=== PATIENT | female | born 1950 | race American Indian/Alaskan Native ===

== ENCOUNTER 2016-12-07 13:48 | Emergency (ER) | payer MEDICAID ==
[2016-12-07 14:30] VITALS: BP 139/60
--- NOTE | 2016-12-07 17:04 | Emergency Department Report ---
ED General Adult HPI - General Chief complaint: Extremity Injury, Lower Stated complaint: FALL/RT KNEE PAIN Time Seen by Provider: 12/07/16 16:19 Source: patient Mode of arrival: Ambulatory Limitations: No Limitations - History of Present Illness Initial comments: 66 year old female presents with right knee pain. states that she has arthritis and felt her knee give out when walking yesterday. states it is an aching pain medially. denies other injury when she fell. denies taking otc medication for pain. - Related Data Home Medications Medication Instructions Recorded Confirmed Last Taken Amlodipine Besylate/Benazepril 10 mg PO DAILY 07/09/14 07/09/14 07/09/14 09:00 [amLODIPine-Benazepril 10/20 mg] Aspirin [Aspirin BABY CHEW TAB] 81 mg PO DAILY 07/09/14 07/09/14 07/09/14 09:00 Atorvastatin [Lipitor] 40 mg PO QHS 07/09/14 07/09/14 07/08/14 22:00 Carvedilol [Coreg] 12.5 mg PO BID 07/09/14 07/09/14 07/09/14 09:00 Gabapentin [Neurontin] 600 mg PO TID 07/09/14 07/09/14 07/09/14 13:00 Insulin Aspart [NovoLOG 100 15 units SQ TID 07/09/14 07/09/14 07/09/14 13:00 UNITS/ML VIAL] Insulin Glargine [Lantus VIAL] 40 units SQ QHS 07/09/14 07/09/14 07/08/14 Isosorbide Mononitrate [Isosorbide 30 mg PO DAILY 07/09/14 07/09/14 07/09/14 09: 00 Mononitrate ER] Loratadine [Claritin] 10 mg PO DAILY 07/09/14 07/09/14 07/09/14 09:00 Losartan [Cozaar] 25 mg PO QDAY 07/09/14 07/09/14 07/09/14 09:00 Tramadol HCl [traMADol] 50 mg PO Q8H PRN 07/09/14 07/09/14 07/08/14 22:00 Previous Rx's Medication Instructions Recorded Last Taken Type Acetaminophen/Codeine [Tylenol #3] 1 tab PO Q8H PRN #12 tablet 04/13/15 Unknown Rx Cyclobenzaprine [Flexeril 10mg] 10 mg PO TID PRN #15 tablet 04/13/15 Unknown Rx traMADol [Ultram 50 MG tab] 50 mg PO Q6HR PRN #14 tablet 12/07/16 Unknown Rx Allergies Allergy/AdvReac Type Severity Reaction Status Date / Time No Known Allergies Allergy Verified 05/17/16 08:56 ED Review of Systems ROS: Stated complaint: FALL/RT KNEE PAIN Other details as noted in HPI Constitutional: denies: chills, fever Eyes: denies: eye pain, eye discharge, vision change ENT: denies: ear pain, throat pain Respiratory: denies: cough, shortness of breath, wheezing Cardiovascular: denies: chest pain, palpitations Endocrine: no symptoms reported Gastrointestinal: denies: abdominal pain, nausea, diarrhea Genitourinary: denies: urgency, dysuria, discharge Musculoskeletal: arthralgia. denies: back pain, joint swelling Skin: denies: rash, lesions Neurological: denies: headache, weakness, paresthesias Psychiatric: denies: anxiety, depression Hematological/Lymphatic: denies: easy bleeding, easy bruising ED Past Medical Hx - Past Medical History Hx Hypertension: Yes Hx Diabetes: Yes - Surgical History Additional Surgical History: "blockage cleared in my artery at [place]" - Social History Smoking Status: Never Smoker Substance Use Type: None - Medications Home Medications: Home Medications Medication Instructions Recorded Confirmed Last Taken Type Amlodipine Besylate/Benazepril 10 mg PO DAILY 07/09/14 07/09/14 07/09/14 09:00 History [amLODIPine-Benazepril 10/20 mg] Aspirin [Aspirin BABY CHEW TAB] 81 mg PO DAILY 07/09/14 07/09/14 07/09/14 09:00 History Atorvastatin [Lipitor] 40 mg PO QHS 07/09/14 07/09/14 07/08/14 22:00 History Carvedilol [Coreg] 12.5 mg PO BID 07/09/14 07/09/14 07/09/14 09:00 History Gabapentin [Neurontin] 600 mg PO TID 07/09/14 07/09/14 07/09/14 13:00 History Insulin Aspart [NovoLOG 100 15 units SQ TID 07/09/14 07/09/14 07/09/14 13:00 History UNITS/ML VIAL] Insulin Glargine [Lantus VIAL] 40 units SQ QHS 07/09/14 07/09/14 07/08/14 History Isosorbide Mononitrate [Isosorbide 30 mg PO DAILY 07/09/14 07/09/14 07/09/14 09: 00 History Mononitrate ER] Loratadine [Claritin] 10 mg PO DAILY 07/09/14 07/09/14 07/09/14 09:00 History Losartan [Cozaar] 25 mg PO QDAY 07/09/14 07/09/14 07/09/14 09:00 History Tramadol HCl [traMADol] 50 mg PO Q8H PRN 07/09/14 07/09/14 07/08/14 22:00 History Acetaminophen/Codeine [Tylenol #3] 1 tab PO Q8H PRN #12 tablet 04/13/15 Unknown Rx Cyclobenzaprine [Flexeril 10mg] 10 mg PO TID PRN #15 tablet 04/13/15 Unknown Rx traMADol [Ultram 50 MG tab] 50 mg PO Q6HR PRN #14 tablet 12/07/16 Unknown Rx ED Physical Exam - General Limitations: No Limitations General appearance: alert, in no apparent distress - Head Head exam: Present: atraumatic, normocephalic - Eye Eye exam: Present: normal appearance - ENT ENT exam: Present: mucous membranes moist - Neck Neck exam: Present: normal inspection - Respiratory Respiratory exam: Present: normal lung sounds bilaterally. Absent: respiratory distress - Cardiovascular Cardiovascular Exam: Present: regular rate, normal rhythm. Absent: systolic murmur, diastolic murmur, rubs, gallop - GI/Abdominal GI/Abdominal exam: Present: soft, normal bowel sounds - Extremities Exam Extremities exam: Present: normal inspection - Expanded Lower Extremity Exam Right Upper Leg exam: Present: normal inspection, full ROM Knee exam: Present: normal inspection, tenderness (medially), pain/laxity with valgus. Absent: swelling, abrasion, laceration, ecchymosis, deformity, dislocation, erythema, effusion, pain w/ pronation/supination, posterior draw sign, full knee extension Lower Leg exam: Present: normal inspection, full ROM - Back Exam Back exam: Present: normal inspection - Neurological Exam Neurological exam: Present: alert, oriented X3 - Psychiatric Psychiatric exam: Present: normal affect, normal mood - Skin Skin exam: Present: warm, dry, intact, normal color. Absent: rash ED Course Vital Signs 12/07/16 14:28 Temperature 98.6 F Pulse Rate 58 L Respiratory 20 Rate Blood Pressure 139/60 O2 Sat by Pulse 100 Oximetry ED Medical Decision Making - Medical Decision Making arthritis seen on right knee XR. NAF. Critical care attestation.: If time is entered above; I have spent that time in minutes in the direct care of this critically ill patient, excluding procedure time. ED Disposition Clinical Impression: Arthritis of right knee, Right knee pain, Fall Disposition: DISCHARGED TO HOME OR SELFCARE Is pt being admited?: No Does the pt Need Aspirin: No Condition: Good Instructions: Arthralgia (ED) Additional Instructions: take medication as prescribed. follow up with orthopedist. Prescriptions: traMADol [Ultram 50 MG tab] 50 mg PO Q6HR PRN #14 tablet PRN Reason: Pain Referrals: PRIMARY CARE, [Primary Care Provider] - 3-5 Days Time of Disposition: 17:05
--- NOTE | 2016-12-08 08:44 | XRay Report ---
RIGHT KNEE, 3 VIEWS: HISTORY: Right knee injury. FINDINGS: [id number] osteoarthritic changes are identified in all 3 compartments. There is no evidence for fracture, bone lesion or large osteochondral defect. [id number] joint effusion is noted on the lateral image. IMPRESSION: Moderate osteoarthritic changes. Joint effusion. No acute bony injury is detected.
== END 2016-12-07 17:20 | disposition home or self-care (01) ==
LOC: ED 13:48
DX: M13.861 Other specified arthritis, right knee (principal); I10 Essential (primary) hypertension; E11.9 Type 2 diabetes mellitus without complications; Z79.82 Long term (current) use of aspirin; Z79.4 Long term (current) use of insulin; W18.30XA Fall on same level, unspecified, initial encounter; Y93.01 Activity, walking, marching and hiking; Y99.9 Unspecified external cause status; Y92.89 Other specified places as the place of occurrence of the external cause

== ENCOUNTER 2017-07-04 04:27 | Emergency (ER) | payer MEDICARE, MEDICAID ==
[2017-07-04] MEDS ORDERED: TORADOL IM ONE (09:05)
--- NOTE | 2017-07-04 09:10 | Emergency Department Report ---
ED Back Pain/Injury HPI - General Chief Complaint: Extremity Injury, Lower Stated Complaint: LEFT LEG PAIN Time Seen by Provider: 07/04/17 08:32 Source: patient Limitations: No Limitations - History of Present Illness Initial Comments: 67-year-old female with recent back surgery for spinal stenosis in April 2008. Surgery was done at [facility] by Dr. Mena. She complains of left sided left leg pain. Pain radiates from the low back all the way down the left leg. She is having some significant pain with it. This was occipital where her pain was prior to surgery. Her initial pain was on the right. Denies weakness. States there may be some mild swelling. No fevers chills nausea vomiting. She has no shortness of breath or chest pain. MD Complaint: back pain -: Gradual, days(s) Place: home Radiation: left leg Severity: moderate Quality: burning Improves With: none Worsens With: none Associated Symptoms: difficulty walking. denies: confusion, weakness, chest pain, numbness - Related Data Home Medications Medication Instructions Recorded Confirmed Last Taken Amlodipine Besylate/Benazepril 10 mg PO DAILY 07/09/14 07/09/14 07/09/14 09:00 [amLODIPine-Benazepril 10/20 mg] Aspirin [Aspirin BABY CHEW TAB] 81 mg PO DAILY 07/09/14 07/09/14 07/09/14 09:00 Atorvastatin [Lipitor] 40 mg PO QHS 07/09/14 07/09/14 07/08/14 22:00 Carvedilol [Coreg] 12.5 mg PO BID 07/09/14 07/09/14 07/09/14 09:00 Gabapentin [Neurontin] 600 mg PO TID 07/09/14 07/09/14 07/09/14 13:00 Insulin Aspart [NovoLOG 100 15 units SQ TID 07/09/14 07/09/14 07/09/14 13:00 UNITS/ML VIAL] Insulin Glargine [Lantus VIAL] 40 units SQ QHS 07/09/14 07/09/14 07/08/14 Isosorbide Mononitrate [Isosorbide 30 mg PO DAILY 07/09/14 07/09/14 07/09/14 09: 00 Mononitrate ER] Loratadine [Claritin] 10 mg PO DAILY 07/09/14 07/09/14 07/09/14 09:00 Losartan [Cozaar] 25 mg PO QDAY 07/09/14 07/09/14 07/09/14 09:00 Tramadol HCl [traMADol] 50 mg PO Q8H PRN 07/09/14 07/09/14 07/08/14 22:00 Previous Rx's Medication Instructions Recorded Last Taken Type Acetaminophen/Codeine [Tylenol #3] 1 tab PO Q8H PRN #12 tablet 04/13/15 Unknown Rx Cyclobenzaprine [Flexeril 10mg] 10 mg PO TID PRN #15 tablet 04/13/15 Unknown Rx traMADol [Ultram 50 MG tab] 50 mg PO Q6HR PRN #14 tablet 12/07/16 Unknown Rx Ibuprofen [Motrin] 600 mg PO Q8H PRN #30 tablet 07/04/17 Unknown Rx Allergies Allergy/AdvReac Type Severity Reaction Status Date / Time No Known Allergies Allergy Verified 05/17/16 08:56 ED Review of Systems ROS: Stated complaint: LEFT LEG PAIN Other details as noted in HPI Comment: All other systems reviewed and negative Constitutional: denies: chills, fever, malaise Respiratory: denies: cough, shortness of breath, wheezing Cardiovascular: denies: chest pain, palpitations Endocrine: no symptoms reported Gastrointestinal: denies: abdominal pain, nausea, diarrhea Genitourinary: denies: urgency, dysuria, discharge Musculoskeletal: denies: back pain, joint swelling, arthralgia Neurological: denies: headache, weakness, paresthesias Psychiatric: denies: anxiety, depression Hematological/Lymphatic: denies: easy bleeding, easy bruising ED Past Medical Hx - Past Medical History Previous Medical History?: Yes Hx Hypertension: Yes Hx Diabetes: Yes - Surgical History Past Surgical History?: Yes Additional Surgical History: "blockage cleared in my artery at [facility]" back surgery - Family History Family history: no significant - Social History Smoking Status: Never Smoker Substance Use Type: None - Medications Home Medications: Home Medications Medication Instructions Recorded Confirmed Last Taken Type Amlodipine Besylate/Benazepril 10 mg PO DAILY 07/09/14 07/09/14 07/09/14 09:00 History [amLODIPine-Benazepril 10/20 mg] Aspirin [Aspirin BABY CHEW TAB] 81 mg PO DAILY 07/09/14 07/09/14 07/09/14 09:00 History Atorvastatin [Lipitor] 40 mg PO QHS 07/09/14 07/09/14 07/08/14 22:00 History Carvedilol [Coreg] 12.5 mg PO BID 07/09/14 07/09/14 07/09/14 09:00 History Gabapentin [Neurontin] 600 mg PO TID 07/09/14 07/09/14 07/09/14 13:00 History Insulin Aspart [NovoLOG 100 15 units SQ TID 07/09/14 07/09/14 07/09/14 13:00 History UNITS/ML VIAL] Insulin Glargine [Lantus VIAL] 40 units SQ QHS 07/09/14 07/09/14 07/08/14 History Isosorbide Mononitrate [Isosorbide 30 mg PO DAILY 07/09/14 07/09/14 07/09/14 09: 00 History Mononitrate ER] Loratadine [Claritin] 10 mg PO DAILY 07/09/14 07/09/14 07/09/14 09:00 History Losartan [Cozaar] 25 mg PO QDAY 07/09/14 07/09/14 07/09/14 09:00 History Tramadol HCl [traMADol] 50 mg PO Q8H PRN 07/09/14 07/09/14 07/08/14 22:00 History Acetaminophen/Codeine [Tylenol #3] 1 tab PO Q8H PRN #12 tablet 04/13/15 Unknown Rx Cyclobenzaprine [Flexeril 10mg] 10 mg PO TID PRN #15 tablet 04/13/15 Unknown Rx traMADol [Ultram 50 MG tab] 50 mg PO Q6HR PRN #14 tablet 12/07/16 Unknown Rx Ibuprofen [Motrin] 600 mg PO Q8H PRN #30 tablet 07/04/17 Unknown Rx ED Physical Exam - General Limitations: No Limitations General appearance: alert, in no apparent distress - Head Head exam: Present: atraumatic, normocephalic - Eye Eye exam: Present: normal appearance - ENT ENT exam: Present: mucous membranes moist - Neck Neck exam: Present: normal inspection. Absent: lymphadenopathy, thyromegaly - Respiratory Respiratory exam: Present: normal lung sounds bilaterally. Absent: respiratory distress, wheezes, rales - Cardiovascular Cardiovascular Exam: Present: regular rate, normal rhythm, normal heart sounds. Absent: systolic murmur, diastolic murmur, rubs, gallop - GI/Abdominal GI/Abdominal exam: Present: soft, normal bowel sounds. Absent: distended, tenderness, guarding - Extremities Exam Extremities exam: Present: normal inspection, pedal edema, other (other straight leg about 30 on the left). Absent: joint swelling, calf tenderness - Back Exam Back exam: Present: other (1+2 surgical incisions that appear well-healed with no evidence of erythema or infection). Absent: tenderness, CVA tenderness (R), muscle spasm, paraspinal tenderness, vertebral tenderness - Neurological Exam Neurological exam: Present: alert, oriented X3 - Psychiatric Psychiatric exam: Present: normal affect, normal mood - Skin Skin exam: Present: warm, dry, intact, normal color. Absent: rash ED Course Vital Signs 07/04/17 07/04/17 07/04/17 04:31 04:36 08:11 Temperature 98.0 F 98.0 F Pulse Rate 62 61 52 L Respiratory 18 13 Rate Blood Pressure 166/69 166/69 O2 Sat by Pulse 99 100 Oximetry 07/04/17 07/04/17 07/04/17 08:15 08:26 08:31 Temperature Pulse Rate 63 67 Respiratory 19 15 18 Rate Blood Pressure 143/60 113/49 O2 Sat by Pulse 99 100 99 Oximetry 07/04/17 07/04/17 07/04/17 08:45 09:01 09:53 Temperature Pulse Rate 62 64 Respiratory 17 25 H Rate Blood Pressure 113/49 155/56 155/56 O2 Sat by Pulse 99 100 99 Oximetry 07/04/17 07/04/17 07/04/17 10:01 10:17 10:22 Temperature Pulse Rate 62 Respiratory 20 18 Rate Blood Pressure 118/42 118/42 O2 Sat by Pulse 99 100 Oximetry 07/04/17 07/04/17 07/04/17 10:31 10:45 11:01 Temperature Pulse Rate 56 L 59 L 58 L Respiratory 16 12 17 Rate Blood Pressure 102/33 118/42 116/48 O2 Sat by Pulse 99 100 99 Oximetry 07/04/17 07/04/17 07/04/17 11:15 11:31 11:45 Temperature Pulse Rate 59 L 58 L 58 L Respiratory 17 16 16 Rate Blood Pressure 116/48 100/32 100/32 O2 Sat by Pulse 98 99 98 Oximetry 07/04/17 12:01 Temperature Pulse Rate 64 Respiratory 20 Rate Blood Pressure 88/34 O2 Sat by Pulse 99 Oximetry ED Medical Decision Making - Lab Data Result diagrams: 07/04/17 09:52 07/04/17 09:52 Laboratory Results - last 24 hr 07/04/17 07/04/17 09:52 09:52 WBC 7.7 RBC 4.51 Hgb 11.6 Hct 36.5 MCV 81 MCH 26 L MCHC 32 RDW 14.2 Plt Count 298 Lymph % (Auto) 38.8 H [place] % (Auto) 7.7 H Eos % (Auto) 3.1 Baso % (Auto) 1.0 Lymph # 3.0 [place] # 0.6 Eos # 0.2 Baso # 0.1 Seg Neutrophils % 49.4 Seg Neutrophils # 3.8 Sodium 137 Potassium 4.7 Chloride 100.3 Carbon Dioxide 22 Anion Gap 19 BUN 18 H Creatinine 0.9 Estimated GFR > 60 BUN/Creatinine Ratio 20.00 Glucose 237 H Calcium 9.5 - Medical Decision Making 67-year-old female here with back pain. Patient states that she has developed left leg pain since her surgery. She has no numbness tingling. She does have some mild swelling in the left leg. Plan to rule out DVT. Plain x-ray to confirm normal placement of spinal hardware. We'll likely refer her back to [facility] for follow-up of her care. Patient neurologically intact. No DVT on ultrasound. Plan to discharge the patient home with follow-up with spine surgery.. Critical care attestation.: If time is entered above; I have spent that time in minutes in the direct care of this critically ill patient, excluding procedure time. ED Disposition Clinical Impression: Back pain, Lumbar radiculopathy Disposition: - TO HOME OR SELFCARE Is pt being admited?: No Condition: Stable Instructions: Lumbar Radiculopathy (ED) Additional Instructions: Please contact Dr. Mena and follow-up with him tomorrow. Prescriptions: Ibuprofen [Motrin] 600 mg PO Q8H PRN #30 tablet PRN Reason: Pain Referrals: PRIMARY CARE, [Primary Care Provider] - 3-5 Days
--- NOTE | 2017-07-04 09:40 | XRay Report ---
AP AND LATERAL LUMBOSACRAL SPINE: History: Back pain, recent surgery. No comparison at this facility. Posterior fusion with disc spacer placement has been performed at L4-5. The hardware appears well applied. There is normal height and alignment of the lumbar vertebral bodies. No compression deformity, subluxation or bone lesion. Mild to moderate degenerative changes are identified at all levels. The upper sacrum and SI joints are unremarkable. IMPRESSION: Stable appearance of the posterior fusion changes at L4-5. Lumbar spondylosis. No acute process is noted.
[2017-07-04 10:21] LABS: Eosinophils % (Auto) 3.1 % (0.0-4.3); Hematocrit 36.5 % (30.3-42.9); Hemoglobin 11.6 gm/dl (10.1-14.3); Mean Corpuscular HGB Conc 32 % (30-34); Mean Corpuscular Volume 81 fl (79-97); Platelet Count 298 K/mm3 (140-440); Red Blood Count 4.51 M/mm3 (3.65-5.03); Red Cell Distribution Width 14.2 % (13.2-15.2); White Blood Count 7.7 K/mm3 (4.5-11.0)
[2017-07-04 10:37] LABS: Anion Gap 19 mmol/L; Blood Urea Nitrogen 18 mg/dL (7-17); Calcium 9.5 mg/dL (8.4-10.2); Carbon Dioxide 22 mmol/L (22-30); Chloride 100.3 mmol/L (98-107); Glucose 237 mg/dL (65-100); Potassium 4.7 mmol/L (3.6-5.0); Sodium 137 mmol/L (137-145)
[2017-07-04 10:58] LABS: Mean Corpuscular Hemoglobin 26 pg (28-32)
[2017-07-04 12:40] VITALS: BP 105/46
--- NOTE | 2017-07-06 07:49 | Vascular Lab Report ---
Left Lower Extremity Venous Duplex Study: Reason for Exam: Pain of the left lower extremity. Comments on the Right: A limited duplex study was done of the proximal veins of the right lower extremity. All veins visualized are freely compressible without evidence of internal echogenicity. Flow is spontaneous and phasic throughout. No evidence of acute or chronic thrombus is seen in any of the vessels visualized. Comments on the Left: All veins visualized are freely compressible without evidence of internal echogenicity. Flow is spontaneous and phasic throughout. No evidence of acute or chronic thrombus is seen in any of the vessels visualized. Impression: No evidence of acute or chronic deep venous thrombosis in the left lower extremity.
== END 2017-07-04 12:42 | disposition home or self-care (01) ==
LOC: ED 04:27
DX: M54.16 Radiculopathy, lumbar region (principal); I10 Essential (primary) hypertension; E11.9 Type 2 diabetes mellitus without complications
CPT/HCPCS: 36415; 72100; 80048; 85025; 93971; 96372; 99284; J1885

== ENCOUNTER 2018-01-11 16:00 | Emergency (ER) | payer MEDICARE, MEDICAID ==
[2018-01-11 16:32] VITALS: BP 135/54
--- NOTE | 2018-01-11 19:55 | Emergency Department Report ---
ED Shortness of Breath HPI - General Chief Complaint: Adult Asthma Stated Complaint: ASTHMA/DRY COUGH Time Seen by Provider: 01/11/18 19:47 Source: patient Mode of arrival: Ambulatory Limitations: No Limitations - History of Present Illness Initial Comments: is a 68-year-old female who is complaining of cough congestion for the last week. Patient does have a history of asthma has been wheezing at home. Patient's states that she has congestion. Patient denies any fevers chills nausea vomiting abdominal pain. Patient does state that the last 2 nights she's had some tightness in the chest. Pain Scale: 3 Consistency: constant Improves With: nothing Worsens With: coughing, inspiration Known History Of: asthma, diabetes Context: allergen exposure - Related Data Home Medications Medication Instructions Recorded Confirmed Last Taken Amlodipine Besylate/Benazepril 10 mg PO DAILY 07/09/14 07/04/17 07/09/14 09:00 [amLODIPine-Benazepril 10/20 mg] Aspirin [Aspirin BABY CHEW TAB] 81 mg PO DAILY 07/09/14 07/04/17 07/09/14 09:00 Atorvastatin [Lipitor] 40 mg PO QHS 07/09/14 07/04/17 07/08/14 22:00 Insulin Aspart [NovoLOG 100 15 units SQ TID 07/09/14 07/04/17 07/09/14 13:00 UNITS/ML VIAL] Insulin Glargine [Lantus VIAL] 45 units SQ QHS 07/09/14 07/04/17 07/08/14 Losartan [Cozaar] 25 mg PO QDAY 07/09/14 07/04/17 07/09/14 09:00 Tramadol HCl [traMADol] 50 mg PO Q8H PRN 07/09/14 07/09/14 07/08/14 22:00 Carvedilol [Coreg] 25 mg PO BID 07/04/17 07/04/17 Unknown Ergocalciferol [Vitamin D2] 1 cap PO QWEEK 07/04/17 07/04/17 Unknown Spironolactone [Aldactone] 50 mg PO QDAY 07/04/17 07/04/17 Unknown Previous Rx's Medication Instructions Recorded Last Taken Type Ibuprofen [Motrin] 600 mg PO Q8H PRN #30 tablet 07/04/17 Unknown Rx ALBUTEROL Inhaler [ProAir HFA 2 puff IH QID PRN #1 inhalation 01/11/18 Unknown Rx Inhaler] Benzonatate [Tessalon Perle] 100 mg PO BID #15 capsule 01/11/18 Unknown Rx Loratadine [Claritin] 10 mg PO DAILY #20 tablet 01/11/18 Unknown Rx Allergies Allergy/AdvReac Type Severity Reaction Status Date / Time No Known Allergies Allergy Verified 05/17/16 08:56 ED Review of Systems ROS: Stated complaint: ASTHMA/DRY COUGH Other details as noted in HPI Comment: All other systems reviewed and negative ED Past Medical Hx - Past Medical History Previous Medical History?: Yes Hx Hypertension: Yes Hx Diabetes: Yes Hx Asthma: Yes - Surgical History Past Surgical History?: Yes Additional Surgical History: "blockage cleared in my artery at [place]" back surgery - Social History Smoking Status: Never Smoker Substance Use Type: None - Medications Home Medications: Home Medications Medication Instructions Recorded Confirmed Last Taken Type Amlodipine Besylate/Benazepril 10 mg PO DAILY 07/09/14 07/04/17 07/09/14 09:00 History [amLODIPine-Benazepril 10/20 mg] Aspirin [Aspirin BABY CHEW TAB] 81 mg PO DAILY 07/09/14 07/04/17 07/09/14 09:00 History Atorvastatin [Lipitor] 40 mg PO QHS 07/09/14 07/04/17 07/08/14 22:00 History Insulin Aspart [NovoLOG 100 15 units SQ TID 07/09/14 07/04/17 07/09/14 13:00 History UNITS/ML VIAL] Insulin Glargine [Lantus VIAL] 45 units SQ QHS 07/09/14 07/04/17 07/08/14 History Losartan [Cozaar] 25 mg PO QDAY 07/09/14 07/04/17 07/09/14 09:00 History Tramadol HCl [traMADol] 50 mg PO Q8H PRN 07/09/14 07/09/14 07/08/14 22:00 History Carvedilol [Coreg] 25 mg PO BID 07/04/17 07/04/17 Unknown History Ergocalciferol [Vitamin D2] 1 cap PO QWEEK 07/04/17 07/04/17 Unknown History Ibuprofen [Motrin] 600 mg PO Q8H PRN #30 tablet 07/04/17 Unknown Rx Spironolactone [Aldactone] 50 mg PO QDAY 07/04/17 07/04/17 Unknown History ALBUTEROL Inhaler [ProAir HFA 2 puff IH QID PRN #1 inhalation 01/11/18 Unknown Rx Inhaler] Benzonatate [Tessalon Perle] 100 mg PO BID #15 capsule 01/11/18 Unknown Rx Loratadine [Claritin] 10 mg PO DAILY #20 tablet 01/11/18 Unknown Rx ED Physical Exam - General Limitations: No Limitations General appearance: alert, in no apparent distress - Head Head exam: Present: atraumatic, normocephalic - Eye Eye exam: Present: normal appearance - ENT ENT exam: Present: mucous membranes moist - Neck Neck exam: Present: normal inspection - Respiratory Respiratory exam: Present: normal lung sounds bilaterally. Absent: respiratory distress, wheezes (patient does not have a wheeze however she does have a prolonged respiratory phase with some decreased breath sounds bilaterally), rales, rhonchi, stridor - Cardiovascular Cardiovascular Exam: Present: regular rate, normal rhythm. Absent: systolic murmur, diastolic murmur, rubs, gallop - GI/Abdominal GI/Abdominal exam: Present: soft, normal bowel sounds - Extremities Exam Extremities exam: Present: normal inspection - Back Exam Back exam: Present: normal inspection - Neurological Exam Neurological exam: Present: alert, oriented X3 - Psychiatric Psychiatric exam: Present: normal affect, normal mood - Skin Skin exam: Present: warm, dry, intact, normal color. Absent: rash ED Course Vital Signs 01/11/18 16:23 Temperature 98.8 F Pulse Rate 71 Respiratory 18 Rate Blood Pressure 135/54 O2 Sat by Pulse 98 Oximetry ED Medical Decision Making - Medical Decision Making Patient has some pre-asthma type I sounds. Patient will be started on albuterol inhaler and be given meds for her cough and congestion. Critical care attestation.: If time is entered above; I have spent that time in minutes in the direct care of this critically ill patient, excluding procedure time. ED Disposition Clinical Impression: Asthma exacerbation Qualifiers: Asthma severity: moderate Asthma persistence: unspecified Qualified Code(s): J45.901 - Unspecified asthma with (acute) exacerbation Allergic rhinitis Qualifiers: Allergic rhinitis trigger: pollen Allergic rhinitis seasonality: seasonal Qualified Code(s): J30.1 - Allergic rhinitis due to pollen Disposition: DC-01 TO HOME OR SELFCARE Is pt being admited?: No Does the pt Need Aspirin: No Condition: Stable Instructions: Asthma (ED) Prescriptions: ALBUTEROL Inhaler [ProAir HFA Inhaler] 2 puff IH QID PRN #1 inhalation PRN Reason: Shortness Of Breath Benzonatate [Tessalon Perle] 100 mg PO BID #15 capsule Loratadine [Claritin] 10 mg PO DAILY #20 tablet Referrals: SHA MARADIAGA MD [Referring] - 3-5 Days
== END 2018-01-11 20:13 | disposition home or self-care (01) ==
LOC: ED 16:00
DX: J45.901 Unspecified asthma with (acute) exacerbation (principal); J30.9 Allergic rhinitis, unspecified; I10 Essential (primary) hypertension; E11.9 Type 2 diabetes mellitus without complications; Z79.4 Long term (current) use of insulin
CPT/HCPCS: 99282

== ENCOUNTER 2019-08-22 22:29 | Emergency (ER) | payer MEDICARE, MEDICAID ==
[2019-08-22 22:58] LABS: Basophils # (Auto) 0.1 K/mm3 (0.0-0.1); Eosinophils # (Auto) 0.1 K/mm3 (0.0-0.4); Eosinophils % (Auto) 0.7 % (0.0-4.3); Hemoglobin 11.8 gm/dl (10.1-14.3); Lymphocytes # (Auto) 1.8 K/mm3 (1.2-5.4); Lymphocytes % (Auto) 17.3 % (13.4-35.0); Mean Corpuscular HGB Conc 34 % (30-34); Mean Corpuscular Volume 83 fl (79-97); Monocytes # (Auto) 0.7 K/mm3 (0.0-0.8); Monocytes % (Auto) 6.9 % (0.0-7.3); Platelet Count 296 K/mm3 (140-440); Red Blood Count 4.23 M/mm3 (3.65-5.03); Red Cell Distribution Width 12.9 % (13.2-15.2)
[2019-08-22 23:21] LABS: Alanine Aminotransferase 23 units/L (7-56); Albumin 3.7 g/dL (3.9-5); BUN/Creatinine Ratio 10; Blood Urea Nitrogen 10 mg/dL (7-17); Hemolysis Index 8
[2019-08-23 00:05] LABS: Bacteria,Urine 4+ /HPF (Negative); Bilirubin,Urine NEG (Negative); Blood,Urine MOD (Negative); Color,Urine Yellow (Yellow); Mucus,Urine FEW /HPF; Protein,Urine <15 mg/dL mg/dL (Negative); Urobilinogen,Urine < 2.0 mg/dL (<2.0)
[2019-08-23] MEDS ORDERED: SODIUM CHLORIDE 0.9% 1000 ML 1,000 ML IV ONE (00:05)
[2019-08-23] MEDS ORDERED: ONDANSETRON 4 MG/2 ML INJ IV ONE (00:05)
[2019-08-23] MEDS ORDERED: MORPHINE 4 MG/1 ML INJ IV ONE (00:05)
[2019-08-23] MEDS ORDERED: FAMOTIDINE 20 MG/2 ML INJ IV ONE (00:05)
--- NOTE | 2019-08-23 01:31 | Ultrasound Report ---
ULTRASOUND ABDOMEN, LIMITED (RIGHT UPPER QUADRANT) INDICATION / CLINICAL INFORMATION: RUQ Pain: R/O Gallstones vs Cholecystitis. COMPARISON: None available. FINDINGS: PANCREAS: Pancreas is not well-visualized. Pancreas appeared grossly normal given this limitation. LIVER: The liver is mildly enlarged but no focal hepatic abnormality noted. GALLBLADDER: No evidence of gallstones or gallbladder wall thickening. BILE DUCTS: No significant abnormality. Common bile duct measures 1-2 mm. FREE FLUID: None. ADDITIONAL FINDINGS: The right kidney contains a simple cyst measuring 4.0 cm. No evidence of abdomin al aortic aneurysm.. IMPRESSION: 1. No acute finding within the right upper quadrant. More specifically, no sonographic evidence for a cute cholecystitis or cholelithiasis. 2. Minimal hepatomegaly. 3. Right renal simple cyst, 4 cm Signer Name: Sue Carmen MD Signed: 08/23/2019 1:26 AM Workstation Name: [id number]
[2019-08-23] MEDS ORDERED: cefTRIAXone/NS 1 GM/50 ML 1 GM/50 ML BAG IV ONE (01:50)
--- NOTE | 2019-08-23 02:14 | Emergency Department Report ---
ED N/V/D HPI - General Chief complaint: Nausea/Vomiting/Diarrhea Stated complaint: CANT KEEP FOOD DOWN Source: patient Mode of arrival: Ambulatory Limitations: No Limitations - History of Present Illness Initial comments: Patient is a 69-year-old -[place] female with a history of hypertension, otv-zocydah-caevxlscf diabetes and hyperlipidemia who presents to the ED with cold and of acute onset persistent nausea, vomiting, diarrhea and epigastric pain for the last 5 days. Patient states that she has no been able to keep anything down because of persistent nausea and vomiting. Patient states that in the last 6 hours, epigastric pain and nausea and vomiting have worsened. Patient denies fever, chills, dizziness, headache, chest pain, shortness of breath, sore throat, dysuria, urinary frequency and urgency, dizziness, syncope, palpitations, cough or back pain. MD complaint: nausea, vomiting, diarrhea, abdominal pain (Epigastric pain) -: Sudden, days(s) (5) Description of Vomiting: food contents, watery, bilious Description of Diarrhea: water Associated Abdominal Pain: Yes (Epigastric pain) Location: epigastric Radiation: none Severity: moderate Pain Scale: 6 Quality: aching, sharp Consistency: intermittent Improves with: none Worsens with: eating, vomiting Context: possible food poisoning Associated Symptoms: denies other symptoms, myalgias, loss of appetite, malaise, nausea/vomiting. denies: chest pain, cough, diaphoresis, fever/chills, headaches, rash, dysuria, shortness of breath, syncope, weakness, other - Related Data Home Medications Medication Instructions Recorded Confirmed Last Taken Amlodipine Besylate/Benazepril 10 mg PO DAILY 07/09/14 07/04/17 07/09/14 09:00 [amLODIPine-Benazepril 10/20 mg] Aspirin [Aspirin BABY CHEW TAB] 81 mg PO DAILY 07/09/14 07/04/17 07/09/14 09:00 Atorvastatin [Lipitor] 40 mg PO QHS 07/09/14 07/04/17 07/08/14 22:00 Insulin Aspart (Nf) [NovoLOG 100 15 units SQ TID 07/09/14 07/04/17 07/09/14 13:00 UNITS/ML VIAL] Insulin Glargine [Lantus VIAL] 45 units SQ QHS 07/09/14 07/04/1714 Losartan [Cozaar] 25 mg PO QDAY 07/09/14 07/04/17 07/09/14 09:00 Tramadol HCl [traMADol] 50 mg PO Q8H PRN 07/09/14 07/09/14 07/08/14 22:00 Ergocalciferol [Vitamin D2] 1 cap PO QWEEK 07/04/17 07/04/17 Unknown Spironolactone [Aldactone] 50 mg PO QDAY 07/04/17 07/04/17 Unknown carvediloL [Coreg] 25 mg PO BID 07/04/17 07/04/17 Unknown Previous Rx's Medication Instructions Recorded Last Taken Type Ibuprofen [Motrin] 600 mg PO Q8H PRN #30 tablet 07/04/17 Unknown Rx ALBUTEROL Inhaler (OR & NICU) 2 puff IH QID PRN #1 inhalation 01/11/18 Unknown Rx [ProAir HFA Inhaler] Benzonatate [Tessalon Perle] 100 mg PO BID #15 capsule 01/11/18 Unknown Rx Loratadine [Claritin] 10 mg PO DAILY #20 tablet 01/11/18 Unknown Rx Dicyclomine [Bentyl] 20 mg PO Q6H PRN #30 tablet 08/23/19 Unknown Rx Famotidine [Pepcid] 20 mg PO Q12H #60 tablet 08/23/19 Unknown Rx Ondansetron [Zofran Odt] 4 mg PO Q6HR PRN #24 tab.rapdis 08/23/19 Unknown Rx cephALEXin [Keflex] 500 mg PO Q6HR #40 capsule 08/23/19 Unknown Rx Allergies Allergy/AdvReac Type Severity Reaction Status Date / Time No Known Allergies Allergy Verified 05/17/16 08:56 ED Review of Systems ROS: Stated complaint: CANT KEEP FOOD DOWN Other details as noted in HPI Constitutional: denies: chills, fever Eyes: denies: eye pain, eye discharge, vision change ENT: throat pain. denies: ear pain Respiratory: denies: cough, shortness of breath, SOB with exertion, wheezing Cardiovascular: denies: chest pain, palpitations Endocrine: no symptoms reported Gastrointestinal: abdominal pain (epigastric pain), nausea, vomiting, diarrhea Genitourinary: denies: urgency, dysuria, discharge Musculoskeletal: denies: back pain, joint swelling, arthralgia Skin: denies: rash, lesions Neurological: denies: headache, weakness, paresthesias Psychiatric: denies: anxiety, depression Hematological/Lymphatic: denies: easy bleeding, easy bruising ED Past Medical Hx - Past Medical History Previous Medical History?: Yes Hx Hypertension: Yes Hx Diabetes: Yes Hx Asthma: Yes - Surgical History Past Surgical History?: Yes Additional Surgical History: "blockage cleared in my artery at [facility]" back s urgery - Social History Smoking Status: Never Smoker Substance Use Type: None - Medications Home Medications: Home Medications Medication Instructions Recorded Confirmed Last Taken Type Amlodipine Besylate/Benazepril 10 mg PO DAILY 07/09/14 07/04/17 07/09/14 09:00 History [amLODIPine-Benazepril 10/20 mg] Aspirin [Aspirin BABY CHEW TAB] 81 mg PO DAILY 07/09/14 07/04/17 07/09/14 09:00 History Atorvastatin [Lipitor] 40 mg PO QHS 07/09/14 07/04/17 07/08/14 22:00 History Insulin Aspart (Nf) [NovoLOG 100 15 units SQ TID 07/09/14 07/04/17 07/09/14 13:00 History UNITS/ML VIAL] Insulin Glargine [Lantus VIAL] 45 units SQ QHS 07/09/14 07/04/17 07/08/14 History Losartan [Cozaar] 25 mg PO QDAY 07/09/14 07/04/17 07/09/14 09:00 History Tramadol HCl [traMADol] 50 mg PO Q8H PRN 07/09/14 07/09/14 07/08/14 22:00 History Ergocalciferol [Vitamin D2] 1 cap PO QWEEK 07/04/17 07/04/17 Unknown History Ibuprofen [Motrin] 600 mg PO Q8H PRN #30 tablet 07/04/17 Unknown Rx Spironolactone [Aldactone] 50 mg PO QDAY 07/04/17 07/04/17 Unknown History carvediloL [Coreg] 25 mg PO BID 07/04/17 07/04/17 Unknown History ALBUTEROL Inhaler (OR & NICU) 2 puff IH QID PRN #1 inhalation 01/11/18 Unknown Rx [ProAir HFA Inhaler] Benzonatate [Tessalon Perle] 100 mg PO BID #15 capsule 01/11/18 Unknown Rx Loratadine [Claritin] 10 mg PO DAILY #20 tablet 01/11/18 Unknown Rx Dicyclomine [Bentyl] 20 mg PO Q6H PRN #30 tablet 08/23/19 Unknown Rx Famotidine [Pepcid] 20 mg PO Q12H #60 tablet 08/23/19 Unknown Rx Ondansetron [Zofran Odt] 4 mg PO Q6HR PRN #24 tab.rapdis 08/23/19 Unknown Rx cephALEXin [Keflex] 500 mg PO Q6HR #40 capsule 08/23/19 Unknown Rx ED Physical Exam - General Limitations: No Limitations General appearance: alert, in no apparent distress - Head Head exam: Present: atraumatic, normocephalic, normal inspection - Eye Eye exam: Present: normal appearance, PERRL, EOMI Pupils: Present: normal accommodation - ENT ENT exam: Present: normal exam, normal orophraynx, mucous membranes moist, TM's normal bilaterally, normal external ear exam - Neck Neck exam: Present: normal inspection, full ROM. Absent: tenderness - Respiratory Respiratory exam: Present: normal lung sounds bilaterally. Absent: respiratory distress, wheezes, rales, rhonchi, chest wall tenderness, accessory muscle use, prolonged expiratory - Cardiovascular Cardiovascular Exam: Present: regular rate, normal rhythm, normal heart sounds. Absent: systolic murmur, diastolic murmur, rubs, gallop - GI/Abdominal GI/Abdominal exam: Present: soft, tenderness (epigastric mild tenderness), normal bowel sounds. Absent: guarding, rebound, rigid, hyperactive bowel sounds - Extremities Exam Extremities exam: Present: normal inspection, full ROM, normal capillary refill - Back Exam Back exam: Present: normal inspection, full ROM. Absent: tenderness, CVA tenderness (R), muscle spasm - Neurological Exam Neurological exam: Present: alert, oriented X3, CN II-XII intact, normal gait, reflexes normal - Psychiatric Psychiatric exam: Present: normal affect, normal mood - Skin Skin exam: Present: warm, dry, intact, normal color. Absent: rash ED Course Vital Signs 08/22/19 08/22/19 22:38 22:43 Temperature 97.8 F 97.8 F Pulse Rate 72 75 Respiratory 16 18 Rate Blood Pressure 146/62 142/62 O2 Sat by Pulse 98 98 Oximetry ED Medical Decision Making - Lab Data Result diagrams: 08/22/19 22:45 08/22/19 22:45 - Radiology Data Radiology results: report reviewed, image reviewed Findings [facility] [address] [place] [address] Ultrasound Report Signed Patient: JAMILAH SCHWARZ MR#: [id number] 3 : 1950 Acct:[id number] Age/Sex: 69 / F ADM Date: 08/22/19 Loc: ED Attending Dr: Ordering Physician: CELINE RAYMUNDO Date of Service: 08/23/19 Procedure(s): US abdomen limited Accession Number(s): [id number] cc: CELINE RAYMUNDO ULTRASOUND ABDOMEN, LIMITED (RIGHT UPPER QUADRANT) INDICATION / CLINICAL INFORMATION: RUQ Pain: R/O Gallstones vs Cholecystitis. COMPARISON: None available. FINDINGS: PANCREAS: Pancreas is not well-visualized. Pancreas appeared grossly normal given this limitation. LIVER: The liver is mildly enlarged but no focal hepatic abnormality noted. GALLBLADDER: No evidence of gallstones or gallbladder wall thickening. BILE DUCTS: No significant abnormality. Common bile duct measures 1-2 mm. FREE FLUID: None. ADDITIONAL FINDINGS: The right kidney contains a simple cyst measuring 4.0 cm. No evidence of abdominal aortic aneurysm.. IMPRESSION: 1. No acute finding within the right upper quadrant. More specifically, no sonographic evidence for acute cholecystitis or cholelithiasis. 2. Minimal hepatomegaly. 3. Right renal simple cyst, 4 cm Signer Name: Sue Carmen MD Signed: 08/23/2019 1:26 AM Workstation Name: [id number] Transcribed By: Dictated By: Sue Carmen MD Electronically Authenticated By: Sue Carmen MD Signed Date/Time: 08/23/19125 DD/ 2 - Medical Decision Making This is a 69-year-old -[place] female who presented to the ED with acute onset persistent intractable nausea and vomiting and diarrhea and epigastric pain for the last 5 days. In the ED, patient is alert and oriented 3 in destruction and distress. Lab test results were reviewed and show hyperglycemia of 388 mg/dL. Urinalysis shows significant urinary tract infection. The EKG shows normal sinus rhythm with a ventricular rate of 60 bpm with supraventricular bigeminy. Gallbladder ultrasound shows no acute cholecystitis or gallstones. Patient was treated for nausea and vomiting, pain and also given antacids. Patient also received Rocephin 1 g IV 1 and normal saline 1 L IV bolus. Is alert test results are unremarkable including initial and repeat troponin levels. On reevaluation, patient's symptoms have resolved patient is able to keep oral fluids in the ED. Patient was discharged home on antiemetics, antacids, and antibiotics and advised to follow-up with her primary care physician in 2-3 days for reevaluation or return to the ED immediately if symptoms get worse. - Differential Diagnosis Cholelithiasis; Cholecystitis; GERD; ACS; Gastroenteritis; Gastritis, UTI Critical care attestation.: If time is entered above; I have spent that time in minutes in the direct care of this critically ill patient, excluding procedure time. ED Disposition Clinical Impression: Abdominal pain, acute, epigastric, Viral gastroenteritis, Nausea, vomiting and diarrhea, Acute urinary tract infection GERD (gastroesophageal reflux disease) Qualifiers: Esophagitis presence: without esophagitis Qualified Code(s): K21.9 - Gastro- esophageal reflux disease without esophagitis Disposition: - TO HOME OR SELFCARE Is pt being admited?: No Does the pt Need Aspirin: No Condition: Stable Instructions: Urinary Tract Infection in Women (ED), Gastroenteritis (ED), Gastroesophageal Reflux Disease (ED), Acute Nausea and Vomiting (ED), Abdominal Pain (ED) Additional Instructions: Maintain a clear liquid diet for 12-24 hours, take medications with food, drink plenty of fluids and follow-up with your primary care physician in 5-7 days for reevaluation. Return to the ED immediately if symptoms get worse. Prescriptions: Dicyclomine [Bentyl] 20 mg PO Q6H PRN #30 tablet PRN Reason: Pain , Severe (7-10) cephALEXin [Keflex] 500 mg PO Q6HR #40 capsule Famotidine [Pepcid] 20 mg PO Q12H #60 tablet Ondansetron [Zofran Odt] 4 mg PO Q6HR PRN #24 tab.rapdis PRN Reason: Nausea Referrals: TAMMY CARBAJAL [Other] - 3-5 Days Time of Disposition: 03:32 Print Language: UKRAINIAN
[2019-08-23 04:04] VITALS: BP 136/60
== END 2019-08-23 04:03 | disposition home or self-care (01) ==
LOC: ED 22:29
DX: N39.0 Urinary tract infection, site not specified (principal); K21.9 Gastro-esophageal reflux disease without esophagitis; A08.4 Viral intestinal infection, unspecified; R11.2 Nausea with vomiting, unspecified; I10 Essential (primary) hypertension; E11.9 Type 2 diabetes mellitus without complications; E78.5 Hyperlipidemia, unspecified; J45.909 Unspecified asthma, uncomplicated; Z79.82 Long term (current) use of aspirin; Z79.4 Long term (current) use of insulin; Z79.899 Other long term (current) drug therapy
CPT/HCPCS: 36415; 76705; 80053; 81001; 83690; 84484; 85025; 87086; 93005; 93010; 96365; 96375; 99284; J0696; J2270; J2405; J7030; 87076

== ENCOUNTER 2021-06-01 15:01 | Emergency (ER) | payer MEDICARE | END 2021-06-01 18:43 | disposition left against medical advice (07) | LOC: ED 15:01 | DX: M25.50 Pain in unspecified joint (principal); Z53.21 Procedure and treatment not carried out due to patient leaving prior to being seen by health care provider ==

== ENCOUNTER 2021-10-10 22:14 | Emergency (ER) | payer MEDICARE ==
[2021-10-10 22:19] VITALS: BP 150/85
== END 2021-10-11 02:06 | disposition home or self-care (01) ==
LOC: ED 22:14
DX: E11.9 Type 2 diabetes mellitus without complications (principal); Z53.21 Procedure and treatment not carried out due to patient leaving prior to being seen by health care provider